=== PATIENT | female | born 1955 | race Caucasian/White ===

== ENCOUNTER → 2023-04-03 15:28 | Outpatient (REF) | payer MEDICARE, OTHER, SELFPAY | LOC: PAVMRI 15:28 | PROVIDERS: ATTENDING PHYSICIAN Family Medicine | DX: M54.6 Pain in thoracic spine (principal) | CPT/HCPCS: 72146 ==

== ENCOUNTER → 2023-05-29 07:10 | Outpatient (REF) | payer MEDICARE, OTHER, SELFPAY | LOC: HWRAD 07:10 | PROVIDERS: ATTENDING PHYSICIAN Internal Medicine; FAMILY PHYSICIAN Family Medicine | DX: R91.8 Other nonspecific abnormal finding of lung field (principal) | CPT/HCPCS: 71250 ==

== ENCOUNTER 2024-12-11 22:13 | Observation (INO) | payer MEDICARE, OTHER, SELFPAY ==
[2024-12-11 18:20] VITALS: BP 181/94
[2024-12-11 18:49] LABS: Hematocrit 35.7 % (37.0-47.0); Hemoglobin 12.2 g/dL (12.0-16.0); Mean Corp Hgb Conc. 34.2 g/dL (33.0-37.0); Mean Corpuscular Volume 81.0 fL (81.0-99.0); Nucleated Red Blood Cells % 0 %; Platelet Count 207 10^3/uL (130-400); Red Cell Dist. Width 14.1 % (11.5-14.5)
[2024-12-11 19:10] LABS: ALT (SGPT) 19 U/L (0-35); AST (SGOT) 24 U/L (14-36); Albumin 4.7 g/dl (3.5-5.0); Alkaline Phosphatase 56 U/L (38-126); Blood Urea Nitrogen 13 mg/dl (7-17); Calcium 9.6 mg/dl (8.4-10.2); Carbon Dioxide 28 mmol/L (22-30); Chloride 98 mmol/L (98-107); Glucose 96 mg/dl (70-99); Potassium 4.1 mmol/L (3.5-5.1); Sodium 133 mmol/L (135-145); Total Protein 7.6 g/dl (6.3-8.2); eGFR > 60.00
[2024-12-11 19:17] LABS: Troponin I < 0.012 ng/ml
[2024-12-11 20:00] VITALS: BP 167/85
--- NOTE | 2024-12-11 20:10 | ED.GENMED ---
History of Present Illness
General
Chief Complaint: Chest Pain
Source: patient
Exam Limitations: none
Time Seen by Provider: 12/11/24 19:48
Nursing documentation reviewed up to this point in time: agreed with
History of Present Illness
History of Present Illness:
69-year-old female history of arrhythmia details unclear status post cardiac cath at [facility] no stents placed presents with chest pain nausea indigestion like feeling earlier today, no fevers, no persistent pain no she still feels nauseated,
nondrinker non-smoker not diabetic
Correction son states her cardiac cath was at [facility]
Past History
Past History
ED Past Medical History: Arrthythmia, HTN and Hypercholesterolemia
ED Past Surgical History: None
Social History
Tobacco: Non-smoker
Alcohol: None
Drug: None
Living: with family
Employment: Retired
Review of Systems
Review of Systems
All Other Systems: Not applicable
Cardiac: Reports chest pain
ABD/GI: Reports nausea
Phy Exam
Physical Exam
Physical Exam:
Physical Exam
General: no apparent distress, not acutely ill
Neck: No jaundice
Heart: s1/s2 regular rate and rhythm, no murmur. equal radial pulses.
Lungs: no acute respiratory distress. clear bilaterally
Abdomen: Nontender soft bowel sounds are present
Neuro: alert and oriented. no focal neurological deficits
Skin: no rash
Psychiatric: well kept. interactive and cooperative
Extremities: no edema. no calf tenderness.
Scores
Heart Score for Chest Pain Patients
STEMI patient?: No
History: Slightly or Non-Suspicious
ECG: Nonspecific Repolarization
Age: >/= 65 years
Risk Factors: 1 or 2 Risk Factors
Troponin: </= Normal Limit
Heart Score for Chest Pain Patients: 4
Heart Score Risk: 20.3% MACE over next 6 weeks
Course
Orders/Labs/Results
Orders:
Orders
12/11/24 Breakfast
Cholesterol Lowering
Cholesterol Lowering: Sodium, 2 Gram
12/11/24 18:08
EKG [Electrocardiogram (*1)] Urgent
Reason for Study: Chest Pain
EKG- Treatment ONCE
12/11/24 18:31
Complete Blood Count/With Diff Urgent
Comprehensive Metabolic Panel Urgent
Lipase Urgent
Comment: ADD ON
Troponin I Urgent
12/11/24 20:05
Ondansetron Injectable [Zofran] 4 mg IV NOW STA
Pantoprazole [Protonix IV] 40 mg IV NOW STA
12/11/24 20:13
CR Chest - 2 Views Urgent
Comment:
Reason For Exam: Chest pain
12/11/24 20:34
NT-proBNP Urgent
Troponin I Urgent
12/11/24 20:44
Add On- LAB Urgent
Tests Added?: Lipase
12/11/24 20:46
Add On- LAB Urgent
Tests Added?: pBNP
12/11/24 20:56
Aspirin 325 mg PO NOW STA
12/11/24 21:48
Admit/Transfer Patient As Directed
Co-Sign Provider:
Level of Care: Observation services
Assign to:: Telemetry
Physician / Group: [email or web address]
Diagnosis: CP
Reason for Telemetry: Chest Pain syndromes
Date to Stop Telemetry: 12/13/24
Time to Stop Telemetry: 11:00
12/11/24 21:50
Code Status As Directed
Resuscitation Status: Full Code
12/11/24 22:30
Electrocardiogram (*1) Q3H
Reason for Study: Chest Pain
Comment: at admission and Q3H for total of 3, to be done with each troponin
HydrALAZINE [Apresoline] 10 mg IV Q4HPRN PRN
12/11/24 22:30
CARDIOLOGY CONSULT Routine
Consulting Provider: Kei Galaviz
Was physician already notified: No
Reason for consult: CP - Angina vs Dyspepsia
Consult Notification Routine
Specialty to Notify: Cardiology
Activity As Directed
Activity Level: With Assistance
INT (Intravenous Needle Therapy) As Directed
Comment: maintain peripheral IV access
Intake/ Output As Directed
Frequency: Per unit guidelines
Obtain Records As Directed
Dates of Information to be Released: Obtain recent CC reports from [place] ( 2021)
Type of Information Requested: ECG/Cardiology Results
Pneumatic Compression Sleeves As Directed
Type: Knee high
Vital Signs As Directed
Frequency: q4h
Weight As Directed
Frequency: Daily
DX Deep Vein Thrombosis Video Routine
12/11/24 22:38
Nitroglycerin Sublingual [Nitrostat (Sublingual)] 0.4 mg SL [id number] PRN
12/11/24 22:46
Glycohemoglobin (HgbA1c) Routine
Troponin I Q6H
Comment: at admit & Q3H for 3 total including ED draws, obtain ECG with each level
12/12/24 01:30
Electrocardiogram (*1) Q3H
Reason for Study: Chest Pain
Comment: at admission and Q3H for total of 3, to be done with each troponin
12/12/24 04:30
Electrocardiogram (*1) Q3H
Reason for Study: Chest Pain
Comment: at admission and Q3H for total of 3, to be done with each troponin
12/12/24 06:00
Cardiovascular Evaluation IN AM
Complete Blood Count/No Diff IN AM
Comprehensive Metabolic Panel IN AM
12/12/24 08:00
Aspirin Chewable [Low Strength Aspirin] 81 mg PO DAILY
Hydrochlorothiazide [Oretic] 25 mg PO DAILY
Lisinopril [Zestril] 40 mg PO DAILY
Metoprolol Xl [Toprol Xl] 25 mg PO BID
Pantoprazole [Protonix] 40 mg PO DAILY
Tamsulosin [Flomax] 0.4 mg PO DAILY
12/13/24 11:00
DC Protocol for Telemetry ONCE
Abnormal Lab Results
12/11/24
18:31
Hct 35.7 L %
(37.0-47.0)
MPV 10.6 H fL
(7.4-10.4)
Sodium 133 L mmol/L
(135-145)
12/11/24 18:31
12/11/24 18:31
Vital Signs
Initial and Last Documented VS:
Initial Vital Signs
Temp Pulse Resp BP Pulse Ox
98.2 F 73 16 181/94 98
12/11/24 18:20 12/11/24 18:20 12/11/24 18:20 12/11/24 18:20 12/11/24 18:20
Last Documented Vital Signs
Temp Pulse Resp BP Pulse Ox
98.2 F 55 18 139/60 94
12/11/24 18:20 12/11/24 23:45 12/11/24 23:45 12/12/24 00:00 12/11/24 23:45
*Pulse Oximetry
SaO2: 98
Oxygen Mode of Delivery: Room air
Patient hypoxic: no
*EKG
Interpreted by ED Provider?: Yes
Interpretation: abnormal
Comparison EKG: no comparison EKG present
Heart Rate: 72
Rate: normal
Rhythm: sinus
Ischemia: T-wave inversion
*Precision Assembler Interpretation
Rate: normal
Interpretation: normal
Heart Rate: 78
Rhythm: sinus
*Critical Care Note
Total Time (30-74mins, 75-104mins- exclusive of procedures): Not Applicable
Update Note
Update Note:
Hip update, abnormal EKG undetectable troponin will try to get her comfortable will repeat her troponin, check chest x-ray, old records prior cath have been requested
845 update apparently records are not available from [facility]
At this point I believe it would be prudent to keep her in the hospital she has undifferentiated chest pain, the abnormal EKG sounds like she had a cardiac cath with nonobstructive CAD a few years ago would I would like to review those reports which
I unable to
10 PM, son states that cath was at [place] will try to get those records
ED Attending Note
-
Portions of this chart may have been created with voice recognition software.� Occasional wrong word or��sound alike� substitutions may have occurred due to the inherent limitations of voice recognition software.
Discharge Plan
Departure
Patient Disposition: Admit
Date of Disposition: 12/11/24
Time of Disposition: 22:06
Admit to: Telemetry
Presentation/result/management discussed w/ accepting MD/DO: Hospitalist
Patient with high blood pressure during this ER visit?: Yes
Condition: Good
Discharge Problem:
Chest pain
Interventions
Interventions:
*Risk Screen - Suicide Last Done: 12/11/24 18:20
*General Assessment Last Done: 12/11/24 18:20
*Neglect/Abuse Screening Last Done: 12/11/24 18:20
*ED- Fall Risk Assessment Last Done: 12/11/24 20:40
*ED COVID-19 Vaccine History Last Done: 12/11/24 20:40
*ED Influenza Vaccine History Last Done: 12/11/24 20:40
*Nursing Disposition Last Done: 12/12/24 01:28
ED- Cardiac Assessment Last Done: 12/11/24 20:39
Discharge Date and Time
Discharge Date/Time: 12/12/24 01:33
[2024-12-11 20:41] VITALS: BMI 32.8
[2024-12-11 21:00] VITALS: BP 183/94
[2024-12-11 21:03] LABS: Troponin I < 0.012 ng/ml
[2024-12-11 21:13] LABS: Lipase 158 U/L (23-300)
--- NOTE | 2024-12-11 21:31 | HPS.HSE ---
Family Physician
-
Family Physician:
Chief Complaint
-
CP, nausea,
History of Present Illness
HPI�from the Son
69F Tajik only speaker Non smoker, not diabetic HX arrhythmia uncertain type, s/p cardiac cath at At [facility] ( 2021) but no stents placed seen at ER
- seen at ER with Son Croatian speaker at bed side
- pw CP, nausea, indigestion like feeling earlier today
- CP is not no persistent
Medical History
Past Medical History
Past Medical History: Reports Arrhythmia
Past Surgical History: Reports Cardiac (reported recent cardiac cath at [facility] - report is not available )
Social History
Tobacco: Non-smoker
Alcohol: None
Family History
Family History: Not pertinent
Allergies / Home Medications
Allergies reflects when Allergies were last updated in [facility].
Home Medications with original date entered in [facility]
Allergy/Medication List:
Allergies
Allergy/AdvReac Type Severity Reaction Status Date / Time
No Known Allergies Allergy Verified 12/11/24 18:24
Home Medications
Sodium Hyaluronate 20 mg INJ WEEKLY 06/07/21
alendronate 70 mg tablet 70 mg PO Q7D 06/07/21
benzonatate 100 mg capsule 100 mg PO Q6HPRN PRN cough 06/07/21
cholecalciferol (vitamin D3) 50 mcg (2,000 unit) tablet 2,000 units PO DAILY 06/07/21
diclofenac sodium 1 % topical gel 1 applic topical BIDPRN PRN bilateral arthritic ankles 06/07/21
flecainide 150 mg tablet (Tambocor) 150 mg PO BID 06/07/21
hydrochlorothiazide 25 mg tablet 25 mg PO DAILY 06/07/21
levofloxacin 500 mg tablet 500 mg PO DAILY #6 tabs 06/07/21
lisinopril 40 mg tablet (Prinivil) 40 mg PO DAILY 06/07/21
mecobalamin-levomefolate calcium-pyridoxal phos 2 mg-3 mg-35 mg tablet (Foltanx) 1 ea PO BIDPRN PRN peripheral neuropathy 06/07/21
metoprolol succinate 25 mg tablet,extended release 24 hr 25 mg PO BID 06/07/21
nitrofurantoin monohydrate/macrocrystals 100 mg capsule 100 mg PO BID 06/07/21
nitroglycerin 0.3 mg sublingual tablet (Nitrostat) 0.3 mg sublingual [id number] PRN chest pain 06/07/21
rivaroxaban 20 mg tablet (Xarelto) 20 mg PO DAILY 06/07/21
rosuvastatin 5 mg tablet 5 mg PO QPM 06/07/21
solifenacin 5 mg tablet 5 mg PO HS 06/07/21
tamsulosin 0.4 mg capsule 0.4 mg PO DAILY 06/07/21
Review of Systems
-
Constitutional: Reports No Symptoms
EENT: Reports No Symptoms
Respiratory: Reports No Symptoms
Cardiac: Reports See HPI
Abdomen/GI: Reports No Symptoms
: Reports No Symptoms
Musculoskeletal: Reports No Symptoms
Skin: Reports No Symptoms
Neurological: Reports No Symptoms
Endocrine: Reports No Symptoms
Hematologic/Lymphatic: Reports No Symptoms
Psych: Reports No Symptoms
Physical Exam
Vital Signs
Vital Signs
Temp Pulse Resp BP Pulse Ox
98.2 F 61 15 183/94 98
12/11/24 18:20 12/11/24 21:00 12/11/24 21:00 12/11/24 21:00 12/11/24 21:00
Physical Exam
General: No Apparent Distress
HEENT: NormoCephalic and Moist mucous membranes
Respiratory: Clear
Cardiac: S1/S2 and Regular Rhythm; No Murmur or Rub
GI: Soft, Non Tender, Non Distended and Organomegaly
Rectal: Deferred by Provider
Musculoskeletal: No Edema
Skin: No Rash
Neuro: Nonfocal/grossly intact
Psych: Calm
Laboratory Results
-
12/11/24 18:31
12/11/24 18:31
Laboratory Results
Total Bilirubin 0.6 mg/dl (0.2-1.3) 12/11/24 18:31
AST 24 U/L (14-36) 12/11/24 18:31
ALT 19 U/L (0-35) 12/11/24 18:31
Alkaline Phosphatase 56 U/L (38-126) 12/11/24 18:31
Troponin I < 0.012 ng/ml 12/11/24 20:34
Lipase 158 U/L (23-300) 12/11/24 18:31
Data Reviewed
-
Diagnostic Radiology: Other (pending CXR final report )
Medical Tests (Nuc Med, Echo, EKG etc): Report Reviewed by me
Lab Data: Labs Reviewed by me
Impression/Plan
-
Vital Signs
Temp Pulse Resp BP Pulse Ox
98.2 F 61 15 183/94 98
12/11/24 18:20 12/11/24 21:00 12/11/24 21:00 12/11/24 21:00 12/11/24 21:00
Laboratory Tests
12/11/24 12/11/24
18:31 20:34
WBC 7.8
Hgb 12.2
Plt Count 207
Sodium 133 L
Creatinine 0.6
eGFR > 60.00
Troponin I < 0.012 < 0.012
Gsh-Z-Txrscdjmyhm Pept 102
EKG
NORMAL SINUS RHYTHM
ST and T WAVE ABNORMALITY, CONSIDER ANTERIOR ISCHEMIA
ABNORMAL ECG
NO PREVIOUS ECGS AVAILABLE
CXR: final report pending
NO PRIOR hospitalist or admission:
ASSESSMENT & PLAN
Pending Rx reconciliation
Tajik speaker
- son both Croatian and Tajik speaker
CP
Unremarkable EKG
NEG TPNI x 2
- Obtain recent CC reports from [place] ( 2021)
- Trend TPNI in AM
- Repeat EKG in AM
- c/w ASA
- TLM monitor
- DCA card consult
Dyspepsia mimicking Angina
- Alendronate ?
- start PO PPI
HLD
- c/w all RISK AND INSURANCE MANAGER Meds
Uncontrol HTN
- c/w al OP Meds ? HCTZ
In NSR
HX arrhythmia ( suspect Prx AF)
- c/w Xarelto and Metoprolol
DVT Px: LMWH
Full Code
OBS TLM
[2024-12-11 22:00] VITALS: BP 174/85
[2024-12-11 23:22] LABS: Troponin I < 0.012 ng/ml
[2024-12-12] VITALS: BP 139/60
--- NOTE | 2024-12-12 02:15 | PTCARENOTE ---
Patient arrived to [facility] from ED. Patient ambulated from stretcher to bed. Patient AAOx3, patient's primary language is Cook Islander. Patient oriented to room, vitals obtained, bed in lowest position, call corona within reach. Plan of care ongoing.
[2024-12-12 02:59] VITALS: BP 164/82; BMI 32.8
[2024-12-12 03:01] VITALS: BMI 37.2
[2024-12-12 05:50] LABS: Hematocrit 35.6 % (37.0-47.0); Hemoglobin 11.9 g/dL (12.0-16.0); Mean Corp Hgb Conc. 33.4 g/dL (33.0-37.0); Mean Corpuscular Volume 80.4 fL (81.0-99.0); Platelet Count 197 10^3/uL (130-400); Red Cell Dist. Width 14.1 % (11.5-14.5)
[2024-12-12 06:08] VITALS: BMI 37.2
[2024-12-12 06:16] LABS: ALT (SGPT) 17 U/L (0-35); AST (SGOT) 21 U/L (14-36); Albumin 4.3 g/dl (3.5-5.0); Alkaline Phosphatase 52 U/L (38-126); Blood Urea Nitrogen 12 mg/dl (7-17); Calcium 9.6 mg/dl (8.4-10.2); Carbon Dioxide 28 mmol/L (22-30); Chloride 104 mmol/L (98-107); Estimated Creatinine Clearance 85 ml/min; Glucose 92 mg/dl (70-99); HDL Cholesterol 41 mg/dl; LDL Cholesterol, Calculated 74 mg/dl; Potassium 4.0 mmol/L (3.5-5.1); Sodium 138 mmol/L (135-145); Total Protein 7.1 g/dl (6.3-8.2); Very Low Density Lipoprotein 29 mg/dl (0-30); eGFR > 60.00
[2024-12-12 07:00] VITALS: BP 154/84
--- NOTE | 2024-12-12 07:41 | CON.CAR ---
Addendum entered and electronically signed by Mauricio Jefferson MD 12/12/24 13:19:
I saw and examined the patient.
The Typing Bookkeeper's note was reviewed and I agree with the note.
Comment:
GEN: No distress, awake, Ox3
HEENT: supple, anicteric, mmm
LUNGS: CTA, no wheezes/rales
CV: Reg, S1/S2, 1/6 syst LSB, no gallop
ABD: soft, BS+, NT/ND
EXT: No edema
NEURO: Gross non-focal
SKIN: No rash
Plan:
69-year-old female with past medical history of hypertension, hyperlipidemia, paroxysmal atrial fibrillation and prior cardiac cath at [facility] with reported no significant CAD. She presents with chest discomfort rating to her left shoulder. It was
associated with some sweats. Nitroglycerin did help it. She went to the emergency room where troponins were nondetectable x 3. EKG had sinus rhythm with nonspecific T wave abnormalities. Her blood pressure has been somewhat elevated.
I do lengthy discussion with the patient and her son who translated. We agreed to check an echocardiac and look for any wall motion abnormalities.
If echo is normal okay for discharge. Would add amlodipine 5 mg daily as her blood pressure is poorly controlled. Continue hydrochlorothiazide, lisinopril, and metoprolol. Resting heart rate is in the 60s.
I advised him if her symptoms worsen she should return to the emergency room.
They agree to follow-up with Dr. Smalls to further discuss stress testing as an outpatient.
She remains in sinus rhythm and will continue the Xarelto.
Original Note:
Consultation
Consultation Request
Date/Time Consultation Requested: 12/11/2024, 2230
Date/Time Consultation Performed: 12/12/2024, 0800
Requesting Provider: Dr. Peraza
Performing Provider: GEORGIANA Dietz for Dr Jefferson
Reason for Consultation: Chest pain
Medical History
-
Chief Complaint: chest pain
History of Present Illness:
69-year-old female, Thai-speaking, with past medical history paroxysmal A-fib, hypertension, hyperlipidemia, previous cardiac catheterization at [facility] in 2021 with no stenting. She is accompanied by her son who translates. Patient denies
history of AR, heart failure, diabetes mellitus. Yesterday while cooking she developed 2 episodes of strong pain starting in her right arm, radiating across her chest and into her left shoulder associated with shortness of breath, nausea, and
diaphoresis. She took a sublingual nitroglycerin with relief. She was taken to ED by her son. Troponins not detectable, EKG normal sinus rhythm with nonspecific T wave inversion.
Patient had a cardiac cath at [facility] in 2021 and follows with outpatient community program assistant Josue Marshall, last seen ~1 year ago. On Xarelto for history of A-fib. Prior to yesterday she had been in her usual state of health except for a recent UTI.
She has needed to take sublingual nitroglycerin 2 other times in the past but not recently.
Hospital evaluation:
Troponin not detectable x 3
BUN/creatinine 13/0.6, NA 133, K4.1,
proBNP 102
LDL 74, HDL 41, TG 145, Tchol 144
PMH:
pafib
HTN
hyperlipidemia
Past Medical History
Past Medical History: Other (As above)
Past Surgical History: Other (Cardiac)
Social History
Tobacco: Non-Smoker
Alcohol: None
Living: With Family
Allergies / Home Medications
Allergy/AdvReac Type Severity Reaction Status Date / Time
No Known Allergies Allergy Verified 12/11/24 18:24
�Medication �Instructions �Recorded �Confirmed �Type
Sodium Hyaluronate 20 mg INJ WEEKLY 06/07/21 06/07/21 History
alendronate 70 mg tablet 70 mg PO Q7D 06/07/21 06/07/21 History
benzonatate 100 mg capsule 100 mg PO Q6HPRN PRN cough 06/07/21 06/07/21 History
cholecalciferol (vitamin D3) 50 2,000 units PO DAILY 06/07/21 06/07/21 History
mcg (2,000 unit) tablet
diclofenac sodium 1 % topical gel 1 applic topical BIDPRN PRN 06/07/21 06/07/21 History
bilateral arthritic ankles
flecainide 150 mg tablet (Tambocor) 150 mg PO BID 06/07/21 06/07/21 History
hydrochlorothiazide 25 mg tablet 25 mg PO DAILY 06/07/21 06/07/21 History
levofloxacin 500 mg tablet 500 mg PO DAILY #6 tabs 06/07/21 Rx
lisinopril 40 mg tablet (Prinivil) 40 mg PO DAILY 06/07/21 06/07/21 History
mecobalamin-levomefolate 1 ea PO BIDPRN PRN peripheral 06/07/21 06/07/21 History
calcium-pyridoxal phos 2 mg-3 neuropathy
mg-35 mg tablet (Foltanx)
metoprolol succinate 25 mg 25 mg PO BID 06/07/21 06/07/21 History
tablet,extended release 24 hr
nitrofurantoin 100 mg PO BID 06/07/21 06/07/21 History
monohydrate/macrocrystals 100 mg
capsule
nitroglycerin 0.3 mg sublingual 0.3 mg sublingual [id number] PRN 06/07/21 06/07/21 History
tablet (Nitrostat) chest pain
rivaroxaban 20 mg tablet (Xarelto) 20 mg PO DAILY 06/07/21 06/07/21 History
rosuvastatin 5 mg tablet 5 mg PO QPM 06/07/21 06/07/21 History
solifenacin 5 mg tablet 5 mg PO HS 06/07/21 06/07/21 History
tamsulosin 0.4 mg capsule 0.4 mg PO DAILY 06/07/21 06/07/21 History
Review of Systems
-
History Source: Patient
All other systems: Negative unless noted
Physical Exam
Vital Signs
Temp Pulse Resp BP Pulse Ox
97.6 F 63 16 164/82 96
12/12/24 02:59 12/12/24 02:59 12/12/24 02:59 12/12/24 02:59 12/12/24 02:59
Lab Results
12/12/24 05:27
12/12/24 05:26
Troponin I < 0.012 ng/ml 12/11/24 22:46
Spy-A-Vnzqjzfvmyr Pept 102 pg/ml 12/11/24 20:34
GEN: No distress, awake, Ox3
HEENT: supple, anicteric, mmm
LUNGS: CTA, no wheezes/rales
CV: Reg, S1/S2, no murmur
ABD: soft, BS+, NT/ND
EXT: No edema
NEURO: Gross non-focal
SKIN: No rash
Impression / Plan
-
PCP: Dr. Gastelum at [facility]
Primary community program assistant: Josue Cramer ([facility])
Impression:
Chest pain
Paroxysmal A-fib
Hypertension
Hyperlipidemia
Previous cardiovascular testing: Unknown
Plan:
Chest pain
-Troponin negative x 3
-EKG nonischemic
-Check echo today. Evaluate for wall motion abnormalities
-If echo okay can discharge and follow-up with outpatient community program assistant
-Continue outpatient statin, Toprol, lisinopril, HCTZ
-Blood pressures elevated despite above regimen so adding amlodipine 5 mg daily for antihypertensive and antianginal properties-I ordered
-Continue outpatient aspirin, statin
h/o Afib
- Telemetry personally reviewed: Normal sinus rhythm,50s-60s, no afib
- Continue outpatient Xarelto
-f/u with outpt community program assistant
I called Dr. Brandie Sanford's office, to obtain previous records and phone rang for 10 minutes with no answer
Data Reviewed
-
EKG: Tracing Personally Visualized and interpreted
Medical Tests (Nuc Med, Echo etc): Image Personally Visualized and interpreted
Labs: Labs Reviewed by me
[2024-12-12] MEDS: LOW STRENGTH ASPIRIN 81 MG PO (08:39)
[2024-12-12] MEDS: FLOMAX 0.4 MG PO (08:40)
[2024-12-12] MEDS: ZESTRIL 40 MG PO (08:41)
[2024-12-12] MEDS: PROTONIX 40 MG PO (08:41)
[2024-12-12] MEDS: TOPROL XL 25 MG PO (08:41)
[2024-12-12] MEDS: ORETIC 25 MG PO (08:43)
[2024-12-12 10:25] LABS: Glycohemoglobin (HgbA1c) 5.5 % (4.0-5.9)
[2024-12-12 11:00] VITALS: BP 141/68
--- NOTE | 2024-12-12 12:00 | W.PN.HOSP.TC ---
Today's Communication/Plan
-
see A/P
Assessment / Plan
Assessment / Plan
HPI: 69 yo F Urdu only speaker woman, [facility] arrhythmia uncertain type, s/p cardiac cath at [facility] 2021, p/w intermittent CP, nausea, and indigestion.
A/P:
# Intermittent chest pain , resolved
Unremarkable EKG. Troponin negative x3
c/w ASA
Tele monitor
Check echo
Card on board. Ok for DC if echo WNL
Pt was also started with PPI for possible dyspepsia mimicking chest pain, cont PPI for now
# Paroxysmal A-fib
Cont BILLBOARD POSTER HELPER meds
# Hypertension
Cont BILLBOARD POSTER HELPER meds
# Hyperlipidemia
Cont BILLBOARD POSTER HELPER meds
DVT Px: BILLBOARD POSTER HELPER xarelto
Full Code
Pending med recc. RN will assist.
DW Card team. Echo ordered and if WNL, cleared by card team for discharge
DW RN
called daughter, call not answered
Anticipated Discharge: Within 24 hours
Subjective/Interval History
-
Date of Service: December 12, 2024
Objective Data
-
Labs:
Laboratory Results
12/12/24 12/12/24
05:26 05:27
WBC 6.9
Hgb 11.9 L
Hct 35.6 L
Plt Count 197
Sodium 138
Potassium 4.0
Chloride 104
Carbon Dioxide 28
BUN 12
Creatinine 0.6
Glucose 92
Calcium 9.6
Total Bilirubin 0.7
AST 21
ALT 17
Alkaline Phosphatase 52
Vital Signs:
Vital Signs
Temp Pulse Resp BP Pulse Ox
36.7 C 63 17 141/68 95
12/12/24 11:00 12/12/24 11:00 12/12/24 11:00 12/12/24 11:00 12/12/24 11:00
I&O
12/11/24 12/12/24 12/13/24
06:59 06:59 06:59
Intake Total 480 / 480
Balance 480 / 480
Review of Systems
-
Unable to obtain full review of systems at this time due to: Language Barrier
Cardiac: Denies Chest Pain
Physical Exam
-
General: Well Developed, Well Nourished, No Apparent Distress, Comfortable, Conversant and Obese; Negative Respiratory Distress
HEENT: Normocephalic, Atraumatic, Nose Appears Normal and Ears Appear Normal; Negative Oxygen
Respiratory: Clear to Auscultation and Non Labored Respirations; Negative Accessory Resp Muscle Use
Cardiac: Regular Rhythm and S1/S2
GI: Soft, Nontender, Nondistended and Normal Bowel Sounds
Skin: Warm and Dry
Neuro: Awake, Alert, Oriented, AO x 3 and Nonfocal/Grossly Intact
Psych: Calm and Intact Judgement/Insight
Data Reviewed
-
Labs: Labs Reviewed by me
[2024-12-12] MEDS: NORVASC 5 MG PO (13:45)
--- NOTE | 2024-12-12 14:10 | W.DCSUMMARY ---
Discharge Summary
Discharge Data
Date of Admission: 12/11/24
Date of Discharge: 12/12/24
Total time spent discharging patient (in min): 40
-
Pending Results: No
Hospital Course
Principal Diagnosis:
Intermittent chest pain, resolved.
Chronic Diagnoses:�
# Paroxysmal A-fib
# Hypertension
# Hyperlipidemia
Consultations:�
Cardiology
Procedures:�
None
Clinical course:�
This is a 69 year old [place] speaking woman with past medical history as stated above, who presented with intermittent chest pain, nausea and indigestion. Her symptoms have largely resolved while in the hospital.
Problem 1:
Intermittent chest pain, resolved.
Her EKG was unremarkable and troponins were negative x3.
She was started with baby aspirin this admission which she can continue going forward.
An echo was obtained which was unrevealing.
She was started with Norvasc 5 mg daily, and her prior to admission hydrochlorothiazide was decreased from 50 to 25 mg daily (to allow blood pressure room for the addition of Norvasc).
She was seen by ekg technician, and was cleared for discharge from their perspective.
She was also started with Protonix for possible dyspepsia mimicking chest pain, and she can continue Protonix 40 mg daily for 1 month.
As for the rest of her medical problems, they were stable during her hospital stay.
Discharge Plan
-
Patient Disposition: Home (Routine Discharge)
Discharge Diagnosis/Procedures: Resolved intermittent chest pain
Condition: Good
Diet: As tolerated, Low Fat, Low Cholesterol and Low Sodium
Activity: As tolerated
Driving Restrictions: As prior to admission
Referrals:
NONE,* [Family Provider, Internal Medicine] - in less than 1 week
Additional Discharge Medication Instructions: baby aspirin was added this admission.
Decrease HCTZ from 50 to 25 mg daily.
Amlodipine 5 mg was added this admission.
You were started with Protonix for possible dyspepsia, continue going forward for 4 weeks
Prescriptions:
New
aspirin 81 mg Tablet,Chewable
81 mg PO DAILY Qty: 30 0RF
hydrochlorothiazide 25 mg Tablet
25 mg PO DAILY Qty: 30 0RF
amlodipine 5 mg Tablet
5 mg PO DAILY Qty: 30 0RF
pantoprazole [Protonix] 40 mg tablet,delayed release (DR/EC)
40 mg PO DAILY Qty: 30 0RF
Continued
nitroglycerin [Nitrostat] 0.3 MG tablet, sublingual
0.3 mg sublingual [id number] PRN (Reason: chest pain)
Rx Instructions:
[facility] on [address]
Xarelto 20 MG tablet
20 mg PO DAILY
Rx Instructions:
[facility] [address]
calcium carbonate [Calcium 600] 600 mg calcium (1,500 mg) Tablet
600 mg PO DAILY
albuterol sulfate [Ventolin HFA] 90 mcg/actuation Hfa Aerosol Inhaler
2 puff INHALATION QID
lisinopril 40 mg Tablet
40 mg PO DAILY
rosuvastatin [Crestor] 10 mg Tablet
10 mg PO DAILY
escitalopram oxalate [Lexapro] 5 mg Tablet
5 mg PO DAILY
metoprolol tartrate 25 mg Tablet
25 mg PO BID
Discontinued
hydrochlorothiazide 50 mg Tablet
50 mg PO DAILY
Discharge Orders:
Discharge Patient (As Directed); Ordered 12/12/24
Ordered By: Adore Hazel
Discharge Date and Time
Print Language: [place]
[2024-12-12 15:00] VITALS: BP 124/65
== END 2024-12-12 17:38 | disposition home or self-care (01) ==
LOC: 3 WEST ACU 22:13
PROVIDERS: Emergency Medicine; ADMITTING PHYSICIAN Internal Medicine; ATTENDING PHYSICIAN Internal Medicine; CONSULT PHYSICIAN Internal Medicine Cardiovascular Disease; EMERGENCY PHYSICIAN Emergency Medicine
DX: R07.89 Other chest pain (principal); I10 Essential (primary) hypertension; I25.119 Atherosclerotic heart disease of native coronary artery with unspecified angina pectoris; I48.0 Paroxysmal atrial fibrillation; E78.5 Hyperlipidemia, unspecified; Z79.01 Long term (current) use of anticoagulants; Z79.899 Other long term (current) drug therapy
CPT/HCPCS: 71046; 80053; 80061; 83036; 83690; 83880; 84484; 85025; 85027; 93005; 93306; 96374; 96375; 97162; 99285; G0378